=== PATIENT | female | born 1995 | race Caucasian/White ===

== ENCOUNTER 2025-01-18 13:54 | Emergency (ER) | payer BC, OTHER ==
[2025-01-18 15:32] LABS: Glucose, Urine (Dipstick) Normal (Negative); Leukocyte 500 (Negative); Protein, Urine (Dipstick) 30 mg/dl (Neg-Trace); Specific Gravity, Urine 1.025 (1.005-1.030)
[2025-01-18 15:36] LABS: Pregnancy Test - Urine (BHCG) Negative (Negative); Pregu Control Background? CLEAR/WHITE (CLR/WHITE); Pregu Control Bar Appear? YES (CONTROL BAR)
[2025-01-18 16:15] LABS: CAUTI Indications for Culture Pelvic or flank pain
[2025-01-18 16:17] LABS: #Basophils 0.04 10x3/uL (0.0-0.2); #Eosinophils 0.10 10x3/uL (0.0-0.5); #Monocytes 0.74 10x3/uL (0.0-1.1); #Neutrophils 4.34 10x3/uL (1.5-8.4); %Basophils 0.6 % (0.0-2.0); %Eosinophils 1.4 % (0.0-6.0); %Lymphocytes 25.5 % (18.0-47.0); %Monocytes 10.5 % (0.0-10.0); %Neutrophils 61.9 % (40.0-75.0); Hematocrit 35.7 % (34.9-44.5); Hemoglobin 12.4 g/dL (12.0-15.5); Mean Corpuscular Hemoglobin 36.0 pg (27.0-33.0); Mean Corpuscular Volume 103.8 fL (81.6-98.3); Platelet Count 233 10x3/uL (150-450); Red Blood Cell (RBC) Count 3.44 10x6/uL (3.90-5.03); White Blood Cell (WBC) Count 7.02 10x3/uL (3.5-10.5)
[2025-01-18] MEDS ORDERED: cefTRIAXone (ROCEPHIN) 1 GM VIAL ONE (16:19)
[2025-01-18] MEDS ORDERED: Ondansetron PF 4 MG/2 ML Vial ONE (16:19)
[2025-01-18] MEDS ORDERED: Ketorolac Tromethamine 30 MG (1 mL) VIAL ONE (16:19)
[2025-01-18 16:20] LABS: Bacteria/HPF 4+ HPF (None Seen); WBC/HPF 21-50 HPF (0-3)
[2025-01-18 16:21] LABS: Mucous/LPF 1+ LPF (<2+)
[2025-01-18 16:22] LABS: Urine Culture Reflex Yes Yes
[2025-01-18 16:29] LABS: ALT (SGPT) 116 U/L (Less than 34); AST (SGOT) 427 U/L (11-34); Albumin 4.2 g/dL (3.1-4.5); Alkaline Phosphatase 99 U/L (40-110); Anion Gap 15 mmol/L (10-20); BUN (Urea Nitrogen) 7 mg/dL (7.0-18.7); Bilirubin, Total 1.1 mg/dL (0.3-1.2); Calc. Creatinine Clearance 0 mL/min (70-130); Calcium 9.3 mg/dL (7.8-10.44); Carbon Dioxide 24 mmol/L (22-29); Chloride 101 mmol/L (98-107); Globulin 3.7 g/dL (2.4-3.5); Glucose 83 mg/dL (70-105); Potassium 3.8 mmol/L (3.5-5.1); Sodium 136 mmol/L (136-145)
== END 2025-01-18 17:55 | disposition home or self-care (01) ==
LOC: CSHERS 13:54
DX: N10 Acute pyelonephritis (principal); N39.0 Urinary tract infection, site not specified; R79.89 Other specified abnormal findings of blood chemistry
CPT/HCPCS: 80053; 81001; 81025; 85025; 87077; 87086; 96365; 96375; J0696; J1885; J2405